=== PATIENT | female | born 1955 | race Caucasian/White ===

== ENCOUNTER → 2023-07-07 14:12 | Outpatient (REF) | payer MEDICARE, OTHER, SELFPAY | LOC: HWWDC 14:12 | PROVIDERS: ATTENDING PHYSICIAN Nurse Practitioner | DX: Z12.31 Encounter for screening mammogram for malignant neoplasm of breast (principal) | CPT/HCPCS: 77063; 77067 ==

== ENCOUNTER → 2024-08-11 09:06 | Outpatient (REF) | payer MEDICARE, OTHER, SELFPAY | LOC: HWWDC 09:06 | PROVIDERS: ATTENDING PHYSICIAN Nurse Practitioner Adult Health | DX: Z78.0 Asymptomatic menopausal state (principal); Z12.31 Encounter for screening mammogram for malignant neoplasm of breast; E04.2 Nontoxic multinodular goiter | CPT/HCPCS: 76536; 77063; 77067; 77080 ==

== ENCOUNTER → 2024-10-04 13:53 | Outpatient (REF) | payer MEDICARE, OTHER, SELFPAY | LOC: RAD 13:53 | PROVIDERS: ATTENDING PHYSICIAN Student in an Organized Health Care Education/Training Program; FAMILY PHYSICIAN Nurse Practitioner Adult Health | DX: M25.561 Pain in right knee (principal); S82.121A Displaced fracture of lateral condyle of right tibia, initial encounter for closed fracture | CPT/HCPCS: 73700 ==

== ENCOUNTER 2024-10-05 06:30 | Inpatient (IN) | payer MEDICARE, OTHER, SELFPAY ==
--- NOTE | 2024-10-04 11:15 | PTCARENOTE ---
Pt states took Excedrin approximately around 1000 on 10/04. RN reinforced the general anesthesia instructions to hold NSAIDs for 3 days and ibuprofen for 24 hours prior to [address] surgery. Dr. Jacobo's office notified.
--- NOTE | 2024-10-04 14:53 | PTCARENOTE ---
Abn ECG, notified, 'Ok if stable' per Dr. Nguyễn. No new interventions requested.
[2024-10-05] VITALS (11 sets, daily range): BP systolic 121–178; BP diastolic 83–105; BMI 30.7
[2024-10-05] MEDS: CELEBREX 200 MG PO (07:50)
[2024-10-05] MEDS: NORMOSOL-R/PLASMALYTE-A 1000 IV (07:51)
[2024-10-05] MEDS: DILAUDID 0.25 MG IV (11:33)
[2024-10-05] MEDS: APRESOLINE 5 MG IV (11:39)
[2024-10-05] MEDS: ROXICODONE 5 MG PO (12:23)
== END 2024-10-05 13:30 | disposition home or self-care (01) | DRG 494 ==
LOC: PACUI 06:30
PROVIDERS: ADMITTING PHYSICIAN Orthopaedic Surgery Hand Surgery
PROC: 0QSG04Z Reposition Right Tibia with Internal Fixation Device, Open Approach (ICD-10-PCS; 2024-10-05)
DX: S82.121A Displaced fracture of lateral condyle of right tibia, initial encounter for closed fracture (principal); W01.0XXA Fall on same level from slipping, tripping and stumbling without subsequent striking against object, initial encounter; I10 Essential (primary) hypertension; E03.9 Hypothyroidism, unspecified
CPT/HCPCS: 27535; 73560; 76000; C1713; C1769